=== PATIENT | male | born 1950 | race Two or more races ===

== ENCOUNTER 2023-04-30 19:59 | Inpatient (IN) | payer MEDICARE, BC ==
[~2023-04-30] VITALS: Ht 175.3 cm; Wt 100.7 kg
--- NOTE | 2023-04-30 20:22 | NUR ---
BROUGHT IN BY WITH CC OF LEFT ABDOMINAL PAIN. STARTED BET 1-2PM. GOT WORST AFTER DINNER TIME WITH SCALE OF 10/10. TOOK IBUPROFEN 600MG WITH NO RELIEF. HAD HX OF DIVERTICULITIS. AWARE
--- NOTE | 2023-04-30 20:28 | NUR ---
URINE SPECIMEN SENT TO LAB
[2023-04-30] MEDS ORDERED: ONDANSETRON HCL/PF 4 MG/2 ML VIAL ONE (20:29)
[2023-04-30] MEDS ORDERED: MORPHINE SULFATE INJ 2 MG/ML DISP.SYRIN IV ONE (20:30)
[2023-04-30] MEDS ORDERED: IV NS 0.9% 1,000 ML BAG IV ONE (20:30)
[2023-04-30] MEDS ORDERED: ONDANSETRON HCL/PF 4 MG/2 ML VIAL IVP ONE (20:30)
[2023-04-30] MEDS ORDERED: MORPHINE SULFATE INJ 4 MG/ML DISP.SYRIN ONE (20:30)
--- NOTE | 2023-04-30 20:35 | NUR ---
EKG DONE AT BEDSIDE
--- NOTE | 2023-04-30 20:40 | NUR ---
18GA TO LEFT AC ESTABLISHED
--- NOTE | 2023-04-30 20:40 | NUR ---
BLOOD WORK COLLECTED, GIVEN TO POOL TECHNICIAN
--- NOTE | 2023-04-30 20:41 | NUR ---
PATIENT TAKEN TO CT VIA JULIA
--- NOTE | 2023-04-30 20:55 | NUR ---
PT BACK FROM CT
--- NOTE | 2023-04-30 21:00 | NUR ---
BLOOD CULTURE COLLECTED; GIVEN TO DEPARTMENT STORE SALESPERSON
[2023-04-30 21:18] LABS: BASOPHILS % (AUTO) 0.4 % (0.0-2.0); EOSINOPHILS % (AUTO) 1.4 % (0.0-6.0); HEMATOCRIT 44 % (39-51); HEMOGLOBIN 14.4 g/dL (13.5-17.5); LYMPHOCYTES % (AUTO) 33.3 % (20.0-44.0); MEAN CORPUSCULAR HGB CONC 33 g/dl (31.0-36.0); MEAN CORPUSCULAR VOLUME 93 fL (80-96); MONOCYTES # (AUTO) 0.4 K/uL (0.1-1.30); MONOCYTES % (AUTO) 4.9 % (2.0-12.0); NEUTROPHILS # (AUTO) 5.3 K/uL (1.8-8.9); PLATELET COUNT (AUTO) 175 K/uL (150-450); RED BLOOD CELL COUNT(AUTO) 4.71 MIL/uL (4.5-6.0); WHITE BLOOD COUNT (AUTO) 8.9 K/uL (4.3-11.0)
[2023-04-30 21:27] LABS: CALCIUM, SERUM 9.6 mg/dL (8.5-10.1); CREATININE 1.2 mg/dL (0.6-1.3); POTASSIUM 4.1 mmol/L (3.5-5.1)
[2023-04-30] MEDS ORDERED: KETOROLAC TROMETHAMINE INJ 30 MG/ML VIAL IV ONE (21:30)
[2023-04-30] MEDS ORDERED: KETOROLAC TROMETHAMINE INJ 30 MG/ML VIAL ONE (21:31)
[2023-04-30 21:32] LABS: BILIRUBIN,URINE NEGATIVE (NEGATIVE); COLOR,URINE YELLOW (YELLOW); LEUKOCYTE ESTERASE ,URINE NEGATIVE (NEGATIVE); NITRITE, URINE NEGATIVE (NEGATIVE); PH,URINE 5.5 (5.0-8.0); PROTEIN,URINE TRACE mg/dl (NEGATIVE); UGLUCOSE NEGATIVE (NEGATIVE); UROBILINOGEN,URINE 0.2 EU/dL (0.2)
[2023-04-30 21:36] LABS: BACTERIA,URINE None seen /HPF (None Seen); MUCUS,URINE Many /LPF (None Seen); RBC,URINE 0-2 /HPF (0-2); WBC,URINE 0-2 /HPF (0-3)
[2023-04-30 21:40] LABS: ALBUMIN 4.1 g/dL (3.4-5.0); BILIRUBIN,DIRECT 0.1 mg/dL (0.0-0.2); BILIRUBIN,TOTAL 0.4 mg/dL (0.2-1.0); TOTAL PROTEIN, SERUM 8.1 g/dL (6.4-8.2)
--- NOTE | 2023-04-30 21:50 | NUR ---
MRSA SWAB COLLECTED AND SENT TO LAB. PATIENT'S BELONGINGS LIST DONE.
--- NOTE | 2023-04-30 21:56 | NUR ---
DR. TOSIN HARDING AT BEDSIDE
[2023-04-30] MEDS ORDERED: HYDROMORPHONE 1 MG/1 ML DISP.SYRIN ONE (21:57)
[2023-04-30] MEDS ORDERED: HYDROMORPHONE 1 MG/1 ML DISP.SYRIN IV ONE (22:00)
--- NOTE | 2023-04-30 22:07 | NUR ---
DR. CARABALLO ON PHONE W/ DR. MCCORMACK/SURGERY
--- NOTE | 2023-04-30 22:10 | NUR ---
REPORT GIVEN TO SHAYLA SUBRAMANIAN
[2023-04-30] MEDS ORDERED: DIATR MEGLU/DIATRIZOATE SODIUM 120 ML BOTTLE (GASTROGRAPHIN) ONE (22:23)
--- NOTE | 2023-04-30 22:25 | NUR ---
16FR NGT INSERTED VIA LEFT NARE, PLACEMENT CONFIRMED VIA AUSCULTATION AND NGT OUTPUT. PER JAH RIVERA TO CONNECT TO LCS AT THIS TIME.
--- NOTE | 2023-04-30 22:28 | NUR ---
XR AT BEDSIDE
[2023-04-30] MEDS ORDERED: PANTOPRAZOLE 40 MG VIAL IV SCH (22:30)
[2023-04-30] MEDS ORDERED: HYDROMORPHONE INJ 2 MG/ML DISP.SYRIN IV PRN (22:30)
[2023-04-30] MEDS ORDERED: IV LR 1000 ML 1,000 ML IV PRN (22:30)
[2023-04-30] MEDS ORDERED: LORAZEPAM INJ 2 MG/ML VIAL IV PRN (22:30)
[2023-04-30] MEDS ORDERED: ONDANSETRON HCL/PF 4 MG/2 ML VIAL IVP PRN (22:30)
[2023-04-30] MEDS ORDERED: ENOXAPARIN SODIUM 40 MG/0.4 ML DISP.SYRIN SQ SCH (22:30)
[2023-04-30] MEDS ORDERED: Z GUARD REMEDY 4 OZ OINT TP PRN (22:30)
--- NOTE | 2023-04-30 22:30 | NUR ---
PT DRANK ORAL CONTRAST WITHOUT ANY ISSUES. VACUUM APPLICATOR OPERATOR TO BRING HIM BACK FOR SCAN AT APPROXIMATELY 12:30AM. RECEIVING RN SHAYLA MADE AWARE.
--- NOTE | 2023-04-30 22:35 | NUR ---
BROUGHT TO RADIOLOGY DEPT
--- NOTE | 2023-04-30 22:50 | NUR ---
SNELLER HAND NOTE PATIENT ARRIVED TO UNIT VIA GURNEY FROM ER STABLE. VS WNL. ACCOMPANIED PATIENT. A/OX4. NO S/S OF DISTRESS, BREATHING WITHOUT DIFFICULTY ON ROOM AIR. RAC #18 INTACT AND PATENT. L-NARIS NGT PRESENT. PATIENT WAS ORIENTED TO THE UNIT. PATIENT GIVEN CALL M[facility] AND INSTRUCTED ON ITS USE. PATIENT'S BELONGINGS ACCOUNTED FOR, LOGGED INTO SHEET, AND PLACED IN CHART. ALL QUESTIONS AND CONCERNS ADDRESSED. SAFETY MEASURES IN PLACE: BED LOCKED AND AT LOWEST POSITION, RAILS UP X2, CALL [facility]A WITHIN REACH. WILL CONTINUE TO MONITOR PATIENT.
[2023-04-30 23:00] VITALS: BP 167/98
--- NOTE | 2023-05-01 00:08 | NUR ---
RT informed of CPAP order, I spoke with pt regarding Cpap. Pt declined to use CPAP while here. Said he doesnt need it everynight. editor farm journal Nina informed.
[2023-05-01 00:33] VITALS: BP 167/98
--- NOTE | 2023-05-01 00:52 | NUR ---
RN NOTE PATIENT TAKEN DOWN TO IMAGINING FOR CT
--- NOTE | 2023-05-01 01:04 | NUR ---
RN NOTE PATIENT RETURNED FROM IMAGINING
--- NOTE | 2023-05-01 01:30 | NUR ---
RN NOTE DR. MCCORMACK ARRIVED TO UNIT TO SPEAK WITH PATIENT ABOUT CURRENT STATUS AND NEED FOR SURGICAL INTERVENTION. EASTON SPOKE AT LENGTH TO THE PATIENT. PATIENT O/W STABLE; WILL CONTINUE TO MONITOR PATIENT.
--- NOTE | 2023-05-01 05:54 | NUR ---
RN NOTE PATIENT HAD SURGERY SCHEDULED FOR 0600 THIS MORNING. EASTON HAD GIVEN THE ORDER FOR THE PROCEDURE. PATIENT DECLINED THE SURGERY. SURGERY CANCELLED. NURSE ELIZABETH BAILEY, NOTIFIED. EASTON NOTIFIED. PATIENT REMAINS O/W STABLE.
[2023-05-01 06:23] LABS: BASOPHILS % (AUTO) 0.3 % (0.0-2.0); EOSINOPHILS % (AUTO) 0.3 % (0.0-6.0); HEMATOCRIT 45 % (39-51); HEMOGLOBIN 14.7 g/dL (13.5-17.5); LYMPHOCYTES # (AUTO) 1.6 K/uL (0.8-4.8); LYMPHOCYTES % (AUTO) 21.6 % (20.0-44.0); MEAN CORPUSCULAR HGB CONC 33 g/dl (31.0-36.0); MEAN CORPUSCULAR VOLUME 93 fL (80-96); MONOCYTES # (AUTO) 0.3 K/uL (0.1-1.30); MONOCYTES % (AUTO) 4.1 % (2.0-12.0); NEUTROPHILS # (AUTO) 5.4 K/uL (1.8-8.9); NEUTROPHILS % (AUTO) 73.7 % (43.0-81.0); PLATELET COUNT (AUTO) 177 K/uL (150-450); RED BLOOD CELL COUNT(AUTO) 4.81 MIL/uL (4.5-6.0); WHITE BLOOD COUNT (AUTO) 7.3 K/uL (4.3-11.0)
[2023-05-01 06:49] LABS: CALCIUM, SERUM 9.3 mg/dL (8.5-10.1); CREATININE 1.1 mg/dL (0.6-1.3); MAGNESIUM 2.1 mg/dL (1.8-2.4); PHOSPHORUS 2.9 mg/dL (2.5-4.9); POTASSIUM 3.6 mmol/L (3.5-5.1)
--- NOTE | 2023-05-01 06:50 | NUR ---
RN CLOSING NOTE PATIENT ASLEEP IN BED. A/OX4. NO S/S OF DISTRESS, BREATHING WITHOUT DIFFICULTY ON ROOM AIR. LAC #18 INTACT AND PATENT W/ LR 75ML/HR. SAFETY MEASURES IN PLACE: BED LOCKED IN PLACE AND AT LOWEST POSITION, RAILS UP X2, CALL MONTILLA WITHIN REACH. WILL ENDORSE TO NEXT SHIFT FOR ZEHRA.
[2023-05-01 07:31] LABS: THYROID STIMULATING HORMONE 1.854 uIU/mL (0.358-3.74)
--- NOTE | 2023-05-01 08:30 | NUR ---
RN NOTE- PT W SBO PENDING SURGERY. VS STABLE, NG TUBE IN PLACE. IVF INFUSING. FAMILY AT BEDSIDE REQUESTING TO GO TO [facility] AMA. SPOKE WITH , CM AND ACADEMY DIRECTOR. PT SIGNING AMA.
--- NOTE | 2023-05-01 09:00 | NUR ---
RN NOTE- PT SIGNED AMA. ISSAC BENNETT NOTIFIED. NG TUBE REMOVED, IV REMOVED, ID WRISTBAND REMOVED. PT DOCUMENTS, LABS AND IMAGING PROVIDED TO FAMILY. PT TAKEN VIA WCR TO CAR BY THIS RN. FAMILY TAKING TO [facility] NOW
== END 2023-05-01 09:00 | disposition left against medical advice (07) | DRG 390 ==
LOC: ER 20:05 → MED 21:59
PROVIDERS: ADMIT Nurse Practitioner Acute Care; ATTEND Nurse Practitioner Acute Care
DX: K56.609 Unspecified intestinal obstruction, unspecified as to partial versus complete obstruction (principal); E66.9 Obesity, unspecified; Z68.32 Body mass index [BMI] 32.0-32.9, adult; G47.30 Sleep apnea, unspecified; R79.89 Other specified abnormal findings of blood chemistry; K57.90 Diverticulosis of intestine, part unspecified, without perforation or abscess without bleeding; K56.2 Volvulus; Z87.19 Personal history of other diseases of the digestive system
CPT/HCPCS: 36415; 71045-TC; 80048-TC; 80061-TC; 80076-TC; 81001; 83605-TC; 83690-TC; 83735-TC; 84100-TC; 84443-TC; 85025-TC; 87040-TC; 87081-TC; A4217; A4223; C9113; G0378; J1170; J1650; J1885; J2270; J2405; J7120; Q9963